=== PATIENT | male | born 1965 | race Caucasian/White ===

== ENCOUNTER → 2019-07-20 | Outpatient (CLI) | payer OTHER | LOC: HYPER 09:38 | DX: T81.31XA Disruption of external operation (surgical) wound, not elsewhere classified, initial encounter (principal); E11.622 Type 2 diabetes mellitus with other skin ulcer; L98.491 Non-pressure chronic ulcer of skin of other sites limited to breakdown of skin; L02.214 Cutaneous abscess of groin; B95.2 Enterococcus as the cause of diseases classified elsewhere; I10 Essential (primary) hypertension; E78.5 Hyperlipidemia, unspecified; F17.290 Nicotine dependence, other tobacco product, uncomplicated; F12.90 Cannabis use, unspecified, uncomplicated; Z79.84 Long term (current) use of oral hypoglycemic drugs; Z79.4 Long term (current) use of insulin; Z90.49 Acquired absence of other specified parts of digestive tract; Y83.8 Other surgical procedures as the cause of abnormal reaction of the patient, or of later complication, without mention of misadventure at the time of the procedure; Y92.89 Other specified places as the place of occurrence of the external cause ==

== ENCOUNTER → 2019-08-03 | Outpatient (CLI) | payer OTHER | LOC: HYPER 14:49 | DX: T81.31XD Disruption of external operation (surgical) wound, not elsewhere classified, subsequent encounter (principal); E11.622 Type 2 diabetes mellitus with other skin ulcer; L98.491 Non-pressure chronic ulcer of skin of other sites limited to breakdown of skin; L02.214 Cutaneous abscess of groin; B95.2 Enterococcus as the cause of diseases classified elsewhere; I10 Essential (primary) hypertension; E78.5 Hyperlipidemia, unspecified; F12.90 Cannabis use, unspecified, uncomplicated; F17.290 Nicotine dependence, other tobacco product, uncomplicated; Z79.4 Long term (current) use of insulin; Y83.8 Other surgical procedures as the cause of abnormal reaction of the patient, or of later complication, without mention of misadventure at the time of the procedure ==